=== PATIENT | female | born 1950 | race Caucasian/White ===

== ENCOUNTER 2017-10-15 12:42 | Outpatient (CLI) | payer MEDICARE, BC ==
[2017-10-15] MEDS ORDERED: Gadobenate Dimeglumine 529 MG/1 ML (20ML VIAL) ONE (14:07)
--- NOTE | 2017-10-15 15:20 | RAD ---
LUMBAR SPINE THREE VIEWS: HISTORY: Lumbar spinal stenosis. Tight back with pain radiating down legs. Tingling sensation x3 weeks. COMPARISON: None. FINDINGS: Standing lateral neutral and standing flexion and extension views demonstrate four lumbar type verteb ral bodies. Lumbar spine vertebral body height appears to be maintained. No fracture. There are de generative changes in the posterior elements at L3-L4 and at L4-S1. Vacuum disk phenomenon at L4-S1. In the neutral position, there is 4.8 mm of anterolisthesis of L3 upon L4. Upon flexion, there is 6.4 mm of anterolisthesis of L3 upon L4. Upon extension, there is 5.2 mm of anterolisthesis of L3 up on L4. Questionable irregularity involving the inferior-most thoracic spine. Consider thoracic spin e radiographs. IMPRESSION: 1. Grade 1 anterolisthesis of L3 upon L4. 2. Consider thoracic spine radiographs to evaluate what appears to be irregularity involving the dis sakina thoracic spine. Irregularity may be on the basis of degenerative change. Compression deformity cannot be excluded. POS: MANISHA
--- NOTE | 2017-10-15 15:47 | MRI ---
MRI OF THE LUMBAR SPINE WITH AND WITHOUT CONTRAST: 10/15/17 HISTORY: Tight back. Pain radiating down both legs. Tingling sensation x3 weeks. Bone spur removal in 2007. COMPARISON: None. TECHNIQUE: A lumbar spine MRI is performed without and with intravenous gadolinium administration. Multisequenti al, multiplanar imaging is performed. FINDINGS: There are type II Modic changes at the T12-L1 disc space. There is no significant fluid in the interv ening disc. There is overall appropriate marrow signal intensity of the lumbar vertebra on the T1 shree ghted images. No significant STIR hyperintensity to suggest vertebral body edema or ligamentous injur y. The visualized solid organs have appropriate signal intensity. Psoas muscles have symmetric signal in tensity. Conus medullaris terminates at the mid L1 level. Postcontrast images do not demonstrate any abnormal enhancement with regards to the vertebral bodies. There is no abnormal enhancement in the thecal sac including the cauda equina and conus medullaris. T12-L1: There is loss of disc space height. There is generalized disc bulge with at least mild centra l canal stenosis. Severe right and moderate left neural foraminal narrowing. L1-L2: Adequate disc hydration. No significant loss of disc space height. minimal left and right para central disc bulge. No significant central canal stenosis. Moderate to severe bilateral neural forami nal narrowing. L2-L3: Adequate disc hydration. There is mild loss of disc space height. There is a broad based disc bulge, ligamentum flavum thickening and facet hypertrophy that results in severe central canal stenos is. There does appear to be a possible small synovial cyst measuring 0.5 cm which adds to the overall degree of severe central canal stenosis. Moderate to severe bilateral neural foraminal narrowing. L3-L4: There are posterior decompressive laminectomy defect. There is minimal enhancing scar tissue a t the operative site. There is posterior element hypertrophy. Overall, there is mild central canal st enosis. There is a broad based disc bulge that does abut the thecal sac. Moderate right and severe le ft neural foraminal narrowing. L4-L5: Desiccation with mild loss of disc space height. There are posterior decompressive laminectomy defect. There is no significant central canal stenosis. Minimal enhancing scar tissue of the operati ve site. Moderate right and mild to moderate left foraminal narrowing. L5-S1: Desiccation with mild loss of disc space height. There is broad based disc bulge with left par acentral component. There are posterior laminectomy defects. Minimal enhancing scarring tissue of the operative site. There is partial obscuration of the traversing left S1 nerve root. There is also mas s effect upon the traversing right S1 nerve root. Overall mild central canal stenosis. Moderate to se julio bilateral neural foraminal narrowing. IMPRESSION: 1. Degenerative changes of the lumbar spine as detailed above. Postoperative changes of the lumb ar spine as detailed above. There is severe central canal stenosis at L2-3. 2. Multilevel significant neural foraminal narrowing as described above. POS: MANISHA
== END 2017-10-15 12:43 | disposition home or self-care (01) ==
LOC: TBSIIMAG 12:42
PROVIDERS: ATTEND Neurological Surgery
DX: M48.061 Spinal stenosis, lumbar region without neurogenic claudication (principal); M43.16 Spondylolisthesis, lumbar region; M47.896 Other spondylosis, lumbar region; M99.83 Other biomechanical lesions of lumbar region; Z98.890 Other specified postprocedural states
CPT/HCPCS: 72100; 72158; 82565; A9579

== ENCOUNTER 2018-01-01 09:33 | Outpatient (CLI) | payer MEDICARE, BC ==
[2018-01-01 10:52] LABS: Mean Corpuscular HGB CONC 32.4 g/dL (32.0-36.0); Mean Corpuscular Hemoglobin 30.8 pg (27.0-31.0); Mean Corpuscular Volume 95.1 fL (78.0-98.0); Mean Platelet Volume 7.7 fL (7.4-10.4); Platelet Count 194 thou/uL (130-400); RBC Distribution Width 12.5 % (11.5-14.5); Red Blood Cell (RBC) Count 4.86 mill/uL (4.20-5.40); White Blood Cell (WBC) Count 6.9 thou/uL (4.8-10.8)
[2018-01-01 11:17] LABS: Anion Gap 12 mmol/L (10-20); BUN (Urea Nitrogen) 12 mg/dL (9.8-20.1); Calc. Creatinine Clearance 0 mL/min (70-130); Calcium 9.7 mg/dL (7.8-10.44); Carbon Dioxide 26 mmol/L (23-31); Chloride 108 mmol/L (98-107); Estimated GFR-MDRD Greater than 90; Glucose 100 mg/dL (80-115); Potassium 3.9 mmol/L (3.5-5.1); Sodium 142 mmol/L (136-145)
--- NOTE | 2018-01-04 11:48 | EKG ---
Test Reason : Blood Pressure : / mmHG Vent. Rate : 082 BPM Atrial Rate : 082 BPM P-R Int : 134 ms QRS Dur : 092 ms QT Int : 382 ms P-R-T Axes : 063 050 022 degrees QTc Int : 446 ms Normal sinus rhythm Nonspecific ST abnormality Borderline ECG Confirmed by NITZA FAJARDO ([id number]) on 01/04/2018 11:47:46 AM Referred By: JANIE Confirmed By:NITZA FAJARDO
== END 2018-01-01 09:34 | disposition home or self-care (01) ==
LOC: LABBT 09:33
PROVIDERS: ATTEND Neurological Surgery
DX: Z01.818 Encounter for other preprocedural examination (principal); M48.061 Spinal stenosis, lumbar region without neurogenic claudication
CPT/HCPCS: 80048; 85027; 93005; 93010

== ENCOUNTER 2018-01-04 06:19 | Day surgery (SDC) | payer MEDICARE, BC ==
[2018-01-01 09:43] VITALS: BMI 24.0
[2018-01-04] MEDS ORDERED: CEFAZOLIN 2 GM/50 ML BAG ONE (06:46)
[2018-01-04] MEDS ORDERED: Fentanyl 100 MCG/2 ML VIAL ONE ×2 (07:32→10:13)
[2018-01-04] MEDS ORDERED: Midazolam HCl 2 mg/2 ml Vial ONE (07:32)
[2018-01-04] MEDS ORDERED: SUGAMMADEX SODIUM 200 MG/2 ML VIAL ONE (09:13)
[2018-01-04] MEDS ORDERED: Ondansetron PF 4 MG/2 ML Vial ONE (09:26)
[2018-01-04] MEDS ORDERED: ePHEDrine/0.9% NaCl/PF SYRINGE 50 mg/10 ml ONE (09:26)
[2018-01-04] MEDS ORDERED: PHENYLEPHRINE-NS 100 MCG/ML 10 ML SYRINGE ONE (09:26)
[2018-01-04] MEDS ORDERED: Glycopyrrolate 0.2 MG/ML 5 ML SYRINGE ONE (09:26)
[2018-01-04] MEDS ORDERED: Lidocaine 1% PF 5 ML VIAL ONE (09:26)
[2018-01-04] MEDS ORDERED: Dexamethasone 20 MG/5 ML VIAL ONE (09:26)
[2018-01-04] MEDS ORDERED: PROPOFOL 200 MG/20 ML VIAL ONE (09:26)
--- NOTE | 2018-01-04 09:31 | OP ---
DATE OF PROCEDURE: 01/04/2018 SURGEON: Pernell Ruelas M.D. [employer] T[employer]ER: Del Phillips PROCEDURE: L2-3 laminectomy. PROCEDURE IN DETAIL: The patient was brought to the operating room and intubated. She was rolled in the prone position on gel-filled chest rolls. Incision made exposing L2 and L3 and our level was co nfirmed by x-ray. We identified the inferior aspect of the prior L3 laminectomy and performed a onofre allyson of L3 laminectomy and inferior L2 laminectomy, completely decompressing the L2-3 interspace. A synovial cyst was identified as well as extensive facet arthropathy. The wound was then extensively irrigated, immaculate hemostasis was secured. Vancomycin powder was applied and the wound was close d in anatomic layers.
[2018-01-04] MEDS ORDERED: HYDROcodone/Acetaminophen 10/325 mg Tablet ONE (11:33)
== END 2018-01-04 12:45 | disposition home or self-care (01) ==
LOC: SDC 06:19
PROVIDERS: ATTEND Neurological Surgery
PROC: 00NY0ZZ Release Lumbar Spinal Cord, Open Approach (ICD-10-PCS; principal; 2018-01-04)
DX: M48.062 Spinal stenosis, lumbar region with neurogenic claudication (principal); M71.38 Other bursal cyst, other site; M12.88 Other specific arthropathies, not elsewhere classified, other specified site; Z79.899 Other long term (current) drug therapy; Z88.5 Allergy status to narcotic agent
CPT/HCPCS: 76001; 96374; J2250; J3010; J3370